=== PATIENT | female | born 1965 | race Caucasian/White ===

== ENCOUNTER 2016-10-28 15:35 | Emergency (ER) | payer OTHER ==
[~2016-10-28] VITALS: Ht 165.1 cm; Wt 70.3 kg
--- NOTE | 2016-10-28 16:53 | ED THROAT/DENTAL COMPLAINT ---
History of Present Illness General Chief Complaint: Sore Throat, Dental Pain Stated Complaint: PT HAS A TOOTH ACHE ON THE RIGHT SIDE Source: patient, family, old records Exam Limitations: no limitations Vital Signs & Intake/Output Vital Signs & Intake/Output Vital Signs Date Time Temp Pulse Resp B/P Pulse O2 O2 Flow FiO2 Ox Delivery Rate 10/28 1715 98.6 76 18 168/84 98 Room Air 10/28 1710 Room Air 10/28 1549 97.8 93 16 192/104 99 Room Air Allergies Coded Allergies: NO KNOWN ALLERGIES (10/13/11) Reconcile Medications Amoxicillin/Potassium Clav (Augmentin 875-125 Tablet) 875 MG-125 MG TABLET 1 TAB PO BID dental Ondansetron (Zofran Odt) 4 MG TAB.RAPDIS 1 TAB SL TID PRN nausea Triage Note: RECEIVED 51 YO FEMALE C/O RIGHT LOWER TOOTHACHE XN ONE DAY. DENTIST CLOSED Triage Nurses Notes Reviewed? yes Onset: Abrupt Duration: day(s): (2), constant Timing: recent history Injury Environment: home Severity: severe Severity Numbers: 10 Modifying Factors: Worsens With: eating. Associated Symptoms: DENIES HPI: 51-year-old female presents emergency room complaining of severe throbbing aching worse with chewing right-sided lower dental pain has been going on for the past 2 days. She states she's had problems with this tooth before. She called her dentist today however states that he was not there. She has not taken anything for her pain. She states the symptoms are making her nauseous she has vomited 2. She denies any facial swelling difficulty swallowing fevers or chills (SIMONA MESSER) Past History Travel History Traveled to [place] past 21 day No Medical History Any Pertinent Medical History? none Neurological: NONE EENT: NONE Cardiovascular: NONE Respiratory: NONE Gastrointestinal: NONE Hepatic: NONE Renal: NONE Musculoskeletal: NONE Psychiatric: NONE Endocrine: NONE Blood Disorders: NONE Cancer(s): NONE Surgical History Surgical History: none Psychosocial History What is your primary language Honduran Tobacco Use: Current Daily Use Daily Tobacco Use Amount/Type: => 5 Cigarettes daily Family History Hx Contributory? No (SIMONA MESSER) Review of Systems Review of Systems Constitutional: Reports: see HPI. All Other Systems: Reviewed and Negative Comments Review of systems: See HPI, All other systems negative. Constitutional, no chills no fever, no malaise HEENT: No visual changes no sore throat no congestio Cardiovascular: No chest pain , no palpitation Skin, no rashes, no change in skin Respiratory: No dyspnea no cough no sputum GI: No nausea no vomiting, no diarrhea, : No dysuria No hematuria, Muscle skeletal: No joint pain, no back pain, no neck pain, Neurologic: No numbness no confusion, no headache Psych: No stress Heme/endocrine: No bruising no bleeding Immunology: No lymphadenopathy (SIMONA MESSER) Physical Exam Physical Exam General Appearance: well developed/nourished, alert, awake Mouth/Throat: normal mouth inspection, pharynx normal, dental tenderness Comments: Well-developed well-nourished patient in no apparent distress. Head/Face: Atraumatic, no facial swelling Eyes: PERRL, EOMI, no conjunctival injection. Ear:External auditory canal and Tympanic membranes clear, no erythema, no FB. Nose: atraumatic.Normal inspection: No bleeding, no septal hematoma Throat: Moist mucous membranes.Pharynx normal. No pharyngeal erythema/exudate seen. No stridor/drooling or assymetry. No swelling or edema. Right sided lower dental tenderness Neck: Supple, FROM Back: FROM, Nontender Cardiovascular: Regular rate and rhythms no murmurs rubs Respiratory: No respiratory distress. Patient speaking in full complete sentences. Breath sounds clear to auscultation bilaterally: NO W/R/R Extremities: full range of motion Neuro: Alert and oriented x3 Skin: Warm & dry;No appreciable rash on exposed skin Psych: Mood affect normal, normal memory normal judgment. Core Measures ACS in differential dx? No Severe Sepsis Present: No Septic Shock Present: No (SIMONA MESSER) Progress Differential Diagnosis: carious tooth, epiglottitis, Ludwigs angina, odontogenic abscess, rene-tonsillar abscess, strep pharyngitis Plan of Care: Current Medications Sig/Shubham Start time Last Medication Dose Stop Time Status Admin Amoxicillin/ 500 MG ONCE ONE 10/28 1699 AC Clavulanate Potassium 10/28 1700 (Augmentin) Ondansetron HCl 4 MG ONCE ONE 10/28 1699 AC (Zofran) 10/28 1700 I discussed with the patient at length all of their results. Patient will follow up with her dentist on Monday I had an extensive conversation regarding need for close follow up with their primary care physician this week as well as return precautions. I answered all of their questions, they feel comfortable with the plan and follow-up care. I discussed the medications that they will receive with the patient. I gave them signs and symptoms that could indicate an adverse reaction. I have advised them to limit their activities until they can see how they respond to the medication. (SIMONA MESSER) Departure Departure Time of Disposition: 1652 Disposition: HOME OR SELF CARE Condition: Stable Clinical Impression Primary Impression: Pain, dental Referrals: JEF GARCIA MD (PCP/Family) Additional Instructions: follow up with your dentist on monday. Tylenol Motrin every 4-6 hours Augmentin as discussed Zofran if needed for nausea, return anytime sooner with any concerns Prescription sent to [facility] Departure Forms: Customer Survey General Discharge Information Prescriptions: Current Visit Scripts Amoxicillin/Potassium Clav (Augmentin 875-125 Tablet) 1 TAB PO BID #14 TAB Ondansetron (Zofran Odt) 1 TAB SL TID PRN nausea #10 TAB (SIMONA MESSER) PA/BRASS MOLDER HELPER Co-Sign Statement Statement: ED Attending supervision documentation- [] I saw and evaluated the patient. I have also reviewed all the pertinent lab results and diagnostic results. I agree with the findings and the plan of care as documented in the PA's/BRASS MOLDER HELPER's documentation. [X] I have reviewed the ED Record and agree with the PA's/BRASS MOLDER HELPER's documentation. [] Additions or exceptions (if any) to the PAs/BRASS MOLDER HELPER's note and plan are summarized below: [] (ARLEEN DE GUZMAN,JENNIFER)
[2016-10-28] MEDS ORDERED: ZOFRAN ODT4 M1 SL (16:58)
[2016-10-28] MEDS ORDERED: AUGMENTIN 875-1 EACH PO (16:58)
[2016-10-28 17:15] VITALS: BP 168/84
== END 2016-10-28 17:15 ==
LOC: ERH 15:35
DX: K08.89 Other specified disorders of teeth and supporting structures (principal)
CPT/HCPCS: J3101; J3490